=== PATIENT | female | born 1945 | race Caucasian/White ===

== ENCOUNTER 2019-03-26 07:30 | Day surgery (SDC) | payer OTHER ==
[2019-03-26 08:19] LABS: ADD MAN DIFF? NO
[2019-03-26] MEDS: DIAZEPAM 5 MG TAB PO (08:20)
[2019-03-26] MEDS: DIPHENHYDRAMINE 50 MG CAP PO (08:20)
[2019-03-26] MEDS: FAMOTIDINE 20 MG TAB PO (08:20)
[2019-03-26 08:24] LABS: WHITE BLOOD COUNT 20.8 10^3/ul (4.8-10.8)
[2019-03-26 08:24] LABS: BASOPHIL # 0.1 10^3/ul (0.0-0.1); BASOPHILS % 0.4 % (0.0-2.0); EOSINOPHILS # 0.7 10^3/ul (0.0-0.5); EOSINOPHILS % 3.2 % (0.0-7.0); HEMATOCRIT 45.2 % (37.0-47.0); HEMOGLOBIN 14.3 g/dl (12.0-16.0); LYMPHOCYTES # 4.3 10^3/ul (0.8-2.9); LYMPHOCYTES % 20.8 % (15.0-51.0); MEAN CORPUSCULAR HEMOGLOBIN 27.8 pg (29.0-33.0); MEAN CORPUSCULAR HGB CONC 31.6 g/dl (32.0-37.0); MEAN CORPUSCULAR VOLUME 87.8 fl (82.0-101.0); MEAN PLATELET VOLUME 10.6 fl (7.4-10.4); MONOCYTE # 1.2 10^3/ul (0.3-0.9); MONOCYTES % 5.9 % (0.0-11.0); NEUTROPHIL # 14.4 10^3/ul (1.6-7.5); PLATELET COUNT 467 10^3/UL (140-415); RED BLOOD COUNT 5.15 10^6/ul (4.20-5.40); RED CELL DISTRIBUTION WIDTH 13.2 % (11.5-14.5)
[2019-03-26] MEDS ORDERED: SOD CHLORIDE 0.45% 1,000 ML IV (08:30)
[2019-03-26 08:32] LABS: HOLD TRANSMISSIONS 1
[2019-03-26] MEDS ORDERED: HEPARIN 1000 UNITS/NS (A-LINE) 1,000 ML (08:35)
[2019-03-26] MEDS ORDERED: VERAPAMIL 5 MG INJ (08:35)
[2019-03-26] MEDS ORDERED: HEPARIN 1000 UNITS/ML 10 ML INJ (08:35)
[2019-03-26] MEDS ORDERED: LIDOCAINE 1% (MDV) 20 ML INJ (08:35)
[2019-03-26 08:42] LABS: INR 0.86; PROTIME 11.8 Sec (11.9-14.9); PT RATIO 0.9
[2019-03-26 08:43] LABS: PARTIAL THROMBOPLASTIN TIME 25.1 Sec (23.0-35.0)
[2019-03-26 08:51] LABS: ANION GAP 8 (5-13); BLOOD UREA NITROGEN 16 mg/dl (7-20); CARBON DIOXIDE 34 mmol/L (21-31); CHLORIDE 99 mmol/L (97-110); CHOL/HDL RATIO 3.5 RATIO; CHOLESTEROL 206 mg/dl (100-200); GLUCOSE 138 mg/dl (70-220); HDL CHOLESTEROL 58 mg/dl (33-92); LDL CHOLESTEROL,CALCULATED 114 mg/dl; SODIUM 141 mmol/L (135-144); TRIGLYCERIDES 169 mg/dl (0-149)
[2019-03-26] MEDS ORDERED: IODIXANOL LOCM 100 ML BTL (09:17)
[2019-03-26] MEDS ORDERED: IODIXANOL LOCM 50 ML BTL (10:33)
[2019-03-26] MEDS ORDERED: SOD CHLORIDE 0.9% 1,000 ML IV (10:43)
[2019-03-26] MEDS ORDERED: ACETAMINOPHEN 325 MG TAB PO (11:00)
[2019-03-26] MEDS ORDERED: ONDANSETRON 4 MG INJ IV (11:00)
[2019-03-26] MEDS ORDERED: AL HYDROX/MG HYDROX/SIMETH 30 ML CUP PO (11:00)
[2019-03-26] MEDS ORDERED: morphine 2 MG INJ IV (11:00)
[2019-03-26] MEDS ORDERED: LIDOCAINE 1%/EPI (1:100,000) (MDV) 20 ML (12:10)
== END 2019-03-26 17:28 | disposition home or self-care (01) ==
LOC: SDS 07:30
DX: I25.10 Atherosclerotic heart disease of native coronary artery without angina pectoris (principal); I10 Essential (primary) hypertension; E78.5 Hyperlipidemia, unspecified; J84.10 Pulmonary fibrosis, unspecified; E78.00 Pure hypercholesterolemia, unspecified; Z79.899 Other long term (current) drug therapy; I34.0 Nonrheumatic mitral (valve) insufficiency; R06.02 Shortness of breath
CPT/HCPCS: 71045; 80048; 80061; 85025; 85610; 85730; 93005; 93460; 93922